=== PATIENT | female | born 1965 | race Two or more races ===

== ENCOUNTER 2024-12-28 14:41 | Inpatient (IN) | payer OTHER, SELFPAY ==
--- NOTE | ~2024-12-28 | CT_ITS ---
CLINICAL HISTORY: abd pain CT abdomen and pelvis with contrast Comparison: None Findings: No consolidation or effusion. The gallbladder is not visualized, presumed surgically absent. There is borderline prominence of the common hepatic duct. The solid organs are within normal limits. No hydronephrosis or hydroureter. No bowel obstruction, pneumoperitoneum, or pneumatosis. There is colonic diverticulosis without CT evidence for acute diverticulitis Uterine calcifications are visualized, suggesting calcified uterine fibroid disease. No bladder wall thickening Normal appendix. No acute fracture visualized. IMPRESSION: 1. No acute inflammatory process identified within the abdomen or pelvis. 2. Surgically absent gallbladder with borderline prominence of the common hepatic duct. Recommend clinical correlation any history of cholestatic labs to exclude subtle biliary obstruction/stasis. 3. Colonic diverticulosis. No CT evidence for acute diverticulitis 4. Calcified uterine fibroid disease. This document has been electronically signed by: Gordon Anderson MD on 12/28/2024 21:12:40
--- NOTE | ~2024-12-28 | MR_ITS ---
EXAMINATION: MRCP HISTORY: abd pain, elevated LFTs COMPARISON: Correlation is made with abdominal ultrasound and CT examinations dated 12/28/2024. TECHNIQUE: Axial gradient echo and coronal haste T2 with fat saturation images were obtained through the abdomen. 3D MRCP Reconstructed images and thick slab imaging of the biliary tree were obtained. FINDINGS: There is no significant loss of signal intensity within the liver on opposed phase imaging to suggest steatosis. There is no intrahepatic biliary ductal dilatation. The liver demonstrates normal signal intensity. The gallbladder is surgically absent. There is dilatation of the common bile duct measuring up to 11 mm. There are no intraluminal filling defects to suggest choledocholithiasis. The pancreas demonstrates normal signal intensity. The pancreatic duct is normal in caliber. The spleen, adrenals, and left kidney are unremarkable. There is a subcentimeter probable cyst at the upper pole of the right kidney. No retroperitoneal lymphadenopathy or ascites is identified in the upper abdomen. The visualized bones demonstrate normal signal intensity. MR/MR MRCP IMPRESSION: Status post cholecystectomy. Dilatation of the common bile duct is likely on the basis of prior cholecystectomy. There is no intrahepatic biliary ductal dilatation or evidence of choledocholithiasis. Electronically signed by: Thomas Brumfield MD 12/29/2024 01:04 PM RONDA
--- NOTE | ~2024-12-28 | US_ITS ---
CLINICAL HISTORY: RUQ US abdomen limited Comparison: CT/SR - CT ABDOMEN PELVIS W IV CON - 12/28/24 20:41 EST Findings: The gallbladder is surgically absent. The common duct measures up to 11.7 mm in diameter. Possible mild intrahepatic biliary dilation. The visualized portion of the liver appears normal in contour. No ascites. IMPRESSION: 1. Surgically absent gallbladder with mild dilation of the common duct up to 11.7 mm in diameter. Recommend clinical correlation with any history of cholestatic labs to evaluate for underlying biliary obstruction/stasis. May also consider MRCP examination for further evaluation as clinically directed. This document has been electronically signed by: Gordon Anderson MD on 12/28/2024 21:46:06
--- NOTE | 2024-12-28 14:45 | ED_ITS ---
HPI - General Adult General Chief complaint: Abdominal Pain Stated complaint: Upper Abd Pain Time Seen by Provider: 12/28/24 19:06 Source: patient Mode of arrival: ambulatory Limitations: no limitations History of Present Illness ED Provider: Bobby KEITH narrative: 59-year-old female with past medical history of acid reflux and cholecystectomy presenting for abdominal pain. Patient states that she has been experiencing approximately 1 week of intermittent epigastric pain. Pain is not associated with eating. She also endorses nausea and nonbloody nonbilious emesis however denies diarrhea, dysuria/hematuria. She also denies fevers, chills, chest pain, shortness of breath Related Data Allergies Allergy/AdvReac Type Severity Reaction Status Date / Time No Known Allergies Allergy Verified 12/28/24 14:49 Review of Systems 2 Review of Systems: Yes all other systems are reviewed and are negative [facility] Past Medical History Attestation statement: The following information was validated with the patient. [facility] Narrative: Acid reflux, cholecystectomy Social History Social History Advance Directives: No Advance Directives Information Provided: Yes Physical Exam ED Vital Signs: Vital Signs - 24 hr 12/28/24 14:46 12/28/24 19:31 Temperature 97.9 F 98.2 F Pulse Rate 67 100 Respiratory Rate 16 15 Blood Pressure 174/81 H 152/80 H Pulse Oximetry 98 98 Oxygen Delivery Method Room Air Room Air BMI result Body Mass Index 27.1 Well-appearing female in no acute distress A&O x4; normal speech and cognition Lungs clear to auscultation bilaterally Normal S1-S2 regular rate and rhythm Abdomen is soft, nondistended with epigastric and left lower quadrant tenderness to palpation Bilateral CVA tenderness to palpation Course Course Course Narrative: RME, this is a rapid medical exam performed by Josh Cespedes please refer to primary provider for complete H&P- 59 year old female presents for evaluation of upper abdominal pain for the last week. She is status post cholecystectomy. Plan for labs, will defer any advanced imaging at the time. Medical Decision Making Medical Decision Making [facility] Narrative: 59-year-old female presents for abdominal pain, nausea and vomiting -I am concerned for the following; gastritis, pancreatitis, SBO, nephrolithiasis, diverticulitis -labs and imaging studies ordered Lab and imaging interpretation -no signs of ischemia appreciated patient's ECG -CBC within normal limits, electrolytes within normal limits, elevated LFTs, normal lactic acid -I do not appreciate hydro or stones on pt's ct; radiology impression as follows Surgically absent gallbladder with borderline prominence of the common hepatic duct. Recommend clinical correlation any history of cholestatic labs to exclude subtle biliary obstruction/stasis. - I reviewed patient's ultrasound do not appreciate abnormal masses; radiologist's impression reads On reassessment patient is still uncomfortable; zofran and toradol ordered I spoke with Dr. Esposito who recommends MRCP Pt is agreeable to admission; overnight hospitalist accepted patient Lab Data 12/28/24 14:55 12/28/24 14:55 Labs: Lab Results 12/28/24 12/28/24 Range/Units 14:55 21:03 WBC 5.3 (4.8-10.8) X10*3/uL RBC 4.41 (4.20-5.50) X10*6/uL Hgb 13.5 (12.0-16.0) g/dl Hct 39.5 (37.0-47.0) % MCV 89.6 (80.0-98.0) fL MCH 30.6 (27.0-33.0) pg MCHC 34.2 (31.0-35.0) g/dl RDW 13.4 (11.0-16.0) % Plt Count 264 (160-400) X10*3/uL MPV 10.0 (9.4-12.3) fL Immature Gran % (Auto) 0.2 (0.0-0.4) % Neut % (Auto) 55.8 (45-73) % Lymph % (Auto) 35.7 (20-40) % [place] % (Auto) 6.6 (2-11) % Eos % (Auto) 0.9 (0-4) % Baso % (Auto) 0.8 (0-2) % Lymph # (Auto) 1.9 (1.2-4.9) X10*3/uL [place] # (Auto) 0.4 (0.1-1.2) X10*3/uL Eos # (Auto) 0.1 (0.0-0.4) X10*3/uL Baso # (Auto) 0.0 (0.0-0.2) X10*3/uL Abs Immat Gran (auto) 0.01 (0.00-0.03) X10*3/uL Absolute Neuts (auto) 3.0 (2.0-8.3) x10*3/uL Absolute Nucleated RBC 0.000 (0.0-0.012) X10*3/uL Nucleated RBC % (auto) 0.0 (0.0-0.2) /100WBC Sodium 143 (135-145) mmol/L Potassium 4.0 (3.3-5.1) mmol/L Chloride 109 H (96-108) mmol/L Carbon Dioxide 29 (22-29) mmol/L Anion Gap 9 L (12-20) BUN 12 (9-16) mg/dL Creatinine 0.79 (0.5-1.4) mg/dL Estim Creat Clear Calc 57.0 Estimated GFR > 60 Random Glucose 102 (60-115) mg/dL Lactic Acid 0.8 (0.5-2.0) mmol/L Calcium 8.8 (8.4-10.2) mg/dL Total Bilirubin 0.6 (0.0-1.0) mg/dL Direct Bilirubin 0.3 (0.0-0.5) mg/dL AST 218 H (5-31) U/L ALT 128 H (0-31) U/L Alkaline Phosphatase 136 H (39-117) U/L Troponin I High Sens 7.4 (<3.5-17.0) ng/L Total Protein 7.5 (6.5-8.0) g/dL Albumin 4.1 (3.5-5.0) g/dL Lipase 34 (8-78) U/L Urine Color Yellow Urine Appearance Cloudy Urine pH 8.5 (5.0-9.0) Ur Specific [place] >= 1.030 H (1.005-1.025) Urine Protein Negative (Neg-Trace) mg/dL Urine Glucose (UA) Negative (Negative) mg/dL Urine Ketones Negative (Negative) mg/dL Urine Blood Negative (Negative) Urine Nitrite Negative (Negative) Ur Leukocyte Esterase Negative (Negative) Urine RBC 0-2 (0-2) /HPF Urine WBC 0-5 (0-5) /HPF Ur Squamous Epith Cells 0-2 (0-2) /HPF Urine Bacteria None Seen (None Seen) Hyaline Casts 0-2 (0-2) /LPF Discharge Plan Discharge Clinical Impression: Elevated LFTs Abdominal pain Qualifiers: Abdominal location: epigastric Qualified Code(s): R10.13 - Epigastric pain Patient Disposition: Admitted As Inpatient Print Language: Romansh
[2024-12-28 14:46] VITALS: BP 174/81; PULSE 67; RESP 16; TEMP 36.6; O2SAT 98; BMI 27.1
--- NOTE | 2024-12-28 14:46 | ECG_ITS ---
Test Reason : PAIN Blood Pressure : */* mmHG Vent. Rate : 64 BPM Atrial Rate : 64 BPM P-R Int : 144 ms QRS Dur : 68 ms QT Int : 436 ms P-R-T Axes : 67 62 73 degrees QTcB Int : 449 ms Normal sinus rhythm Normal ECG No previous ECGs available Referred By: Randall Cespedes Electronically Signed By: Tip Santiago
[2024-12-28 15:01] LABS: MANUAL DIFF FLAG NO
[2024-12-28 15:04] LABS: Basophils Percent Auto 0.8 % (0-2); Eosinophils Absolute Auto 0.1 X10*3/uL (0.0-0.4); Eosinophils Percent Auto 0.9 % (0-4); Hematocrit 39.5 % (37.0-47.0); Hemoglobin 13.5 g/dl (12.0-16.0); Imm Gran Abs Auto 0.01 X10*3/uL (0.00-0.03); Imm Gran Pct Auto 0.2 % (0.0-0.4); Lymphocytes Absolute Auto 1.9 X10*3/uL (1.2-4.9); Lymphocytes Percent Auto 35.7 % (20-40); Mean Corpuscular HGB Conc 34.2 g/dl (31.0-35.0); Mean Corpuscular Hemoglobin 30.6 pg (27.0-33.0); Mean Corpuscular Volume 89.6 fL (80.0-98.0); Monocytes Absolute Auto 0.4 X10*3/uL (0.1-1.2); Monocytes Percent Auto 6.6 % (2-11); Neutrophils Percent Auto 55.8 % (45-73); Platelet Count 264 X10*3/uL (160-400); Red Blood Count 4.41 X10*6/uL (4.20-5.50); Red Cell Distribution Width 13.4 % (11.0-16.0); White Blood Count 5.3 X10*3/uL (4.8-10.8)
[2024-12-28 15:16] LABS: Lactic Acid 0.8 mmol/L (0.5-2.0)
[2024-12-28 15:19] LABS: Alanine Aminotransferase 128 U/L (0-31); Albumin Level 4.1 g/dL (3.5-5.0); Alkaline Phosphatase 136 U/L (39-117); Anion Gap 9 (12-20); Aspartate Amino Transferase 218 U/L (5-31); Bilirubin Total 0.6 mg/dL (0.0-1.0); Blood Urea Nitrogen 12 mg/dL (9-16); Calcium 8.8 mg/dL (8.4-10.2); Carbon Dioxide 29 mmol/L (22-29); Chloride 109 mmol/L (96-108); Estimated Glomerular Filt Rate > 60; Glucose Random 102 mg/dL (60-115); Lipase 34 U/L (8-78); Sodium 143 mmol/L (135-145); Total Protein 7.5 g/dL (6.5-8.0)
[2024-12-28 19:23] LABS: Bilirubin Direct 0.3 mg/dL (0.0-0.5)
[2024-12-28 19:31] VITALS: BP 152/80; PULSE 100; RESP 15; TEMP 36.8; O2SAT 98
[2024-12-28 19:59] LABS: Troponin-I High Sensitivity 7.4 ng/L (<3.5-17.0)
--- OUTSIDE RECORDS SUMMARY | 2024-12-28 20:08 | XMS_ITS ---
Author Organization [facility] Address [address] [facility] [place] [address] Care Team Providers Care Chiropractic Practice Manager Name Role Phone Chase Parkinson Primary Care Provider Kari Acosta [phone] Encounters Encounter Location Date Provider Diagnosis [address] [address] 08/17/2024 Kari Garcia Plan Of Treatment No Information Progress Notes * Dave LUJANaDOB:1965 (59 yo F)Acc No.[id number]:08/17/2024 Progress Note Patient:?TAI Fani Provider:Annemarie Garcia DPM :1965???Age:58 Y???Sex:Female D ate:08/17/2024 Address:[address] [place] Pcp:Chase Parkinson Subjective: * Chief Complaints: * ??? * Medical History:? Objective: * Vitals:? Assessment: Plan: * Treatment: * Images: * The named appointment provid er may or may not be the originator of this progress note, and it is not deemed complete until electronically signed by the appointment provider. Sign off status: Pending * Provider:Annemarie Garcia DPM Date:?2023 Generated for Mauri ahuja/Sally/eTransmitting on:?12/28/2024 08:08 PM EST
--- OUTSIDE RECORDS SUMMARY | 2024-12-28 20:08 | XMS_ITS ---
Author Organization [facility] Address [address] [place] [address] Care Team Providers Care Multiple Pressure Riveter Operator Name Role Phone Chase Parkinson Primary Care Provider Unavailabl e Black, Kari Unavailable [phone] REASON FOR VISIT numbness Encounters Encounter Location Date Provider Diagnosis [facility] [address] [place] [address] 06/14/2024 Karicolton Garcia Plan Of Treatment No Information Progress Notes * Dave LUJANaDOB:1965 (58 yo F)Acc No.[id number]:06/14/2024 Patient:?Fani Lujan :1965???Age:58 Y???Sex:Female Address:[address] [place], [address] * true * Date:? Generated for Crowi seymour/Sally/eTransmitting on:?12/28/2024 08:07 PM EST
--- OUTSIDE RECORDS SUMMARY | 2024-12-28 20:08 | XMS_ITS ---
Author Organization [facility] Address [address] [place] [address] Care Team Providers Care Computer Assembler Name Role Phone Chase Parkinson Primary Care Provider Unavailabl e Black, Kari Unavailable [phone] REASON FOR VISIT Cancel Encounters Encounter Location Date Provider Diagnosis [facility] [address] [place] [address] 08/16/2024 Kari Black Plan Of Treatment No Information Progress Notes * Scottie LUJANB:1965 (58 yo F)Acc No.[id number]:08/16/2024 Patient:?Fani Lujan :1965???Age:58 Y???Sex:Female Address:[address] [place], [address] * true * Date:? Generated for Crowi seymour/Sally/eTransmitting on:?12/28/2024 08:07 PM EST
--- OUTSIDE RECORDS SUMMARY | 2024-12-28 20:08 | XMS_ITS | Continuity of Care Document ---
Author Organization [facility] Address [address] [place] [address]- Care Team Providers Care Car Pusher Name Role Phone Iggy MOSHER, Chase Primary Care Physician Encounter [id number] Date(s): 12/01/24 - 12/01/24 [facility] [address] [place] [id number] Encounter Type: Results Only Allergies, Adverse Reactions, Alerts No Known Allergies Immunizations Given and Recorded Vaccine Date Status Refusal Reason influenza virus vaccine, inactivated 08/02/23 Dickson rded influenza virus vaccine, inactivated 08/30/21 Dickson rded influenza virus vaccine, inactivated 07/12/20 Dickson rded influenza virus vaccine, inactivated 09/21/19 Dickson rded influenza virus vaccine, inactivated 09/27/18 Dickson rded influenza virus vaccine, inactivated 09/13/16 Dickson rded [id number] 12y+ bivalent booster vax 10/01/22 Recorded SARS-CoV-2 (COVID-19) mRNA BNT-162b2 vac 11/22/21 Recorded SARS-CoV-2 (COVID-19) mRNA BNT-162b2 vac 04/04/21 Recorded SARS-CoV-2 (COVID-19) mRNA BNT-162b2 vac 03/14/21 Recorded diphtheria/tetanus/pertussis, acel(DTaP) 1 07/25/19 Recorded 1Result Comment: Unit: Unknown Medications Boniva 150 mg oral tablet 1 tablet = 150 mg, By Mouth, Every 30 days, # 10 mL, 0 Refills, Maintenance, 07/12/24 11:53:00 AM EDT, Tablet, Partial fill upon patient request if the prescription is for a schedule II opioid drug. Start Date: 07/12/24 Status: Ordered Quantity: 10.0 Unit: mL Repeat number: 1 Butalbital Compound By Mouth, 0 Refills, Maintenance, 10/09/23 3:49:00 PM EST Start Date: 10/09/23 Status: Ordered Repeat number: 1 calcium (as citrate)-vitamin D 315 mg-250 intl units oral tablet 2 tablet, By Mouth, 2 times a day, # 120 tablet, 11 Refills, Maintenance, 05/23/24 3:09:00 PM EDT, Tablet, [facility]/pharmacy #[id number], Partial fill upon patient request if the prescription is for a schedule II opioid drug., 2 tablet By Mouth 2 times a day, 152, cm, 05/23/24 14:55:00 EDT, Height, 58.5, kg, 01/05/24 11:45:00 EST, Dry Weight Start Date: 05/23/24 Status: Ordered Quantity: 120.0 Unit: tablet Repeat number: 12 Omeprazole = 20 mg, By Mouth, Daily, 0 Refills, Maintenance, 10/07/19 4:10:45 PM EST Start Date: 10/07/19 Status: Ordered Repeat number: 1 Tylenol Extra Strength 500 mg oral tablet 1 tablet = 500 mg, By Mouth, 4 times a day, PRN Pain , Moderate, Maintenance, 11/23/19 3:36:00 PM EST Start Date: 11/23/19 Status: Ordered Repeat number: 1 Vitamin C Tablet = 1,000 mg, By Mouth, Daily, 0 Refills, Maintenance, 12/21/19 6:08:00 AM EST, Tablet Start Date: 12/21/19 Status: Ordered Repeat number: 1 Vitamin D3 1000 intl units oral tablet 1 tablet = 25 mcg, By Mouth, Daily, # 90 tablet, 1 Refills, Maintenance, 09/10/24 9:28:00 AM EST, [id number], Partial fill upon patient request if the prescription is for a schedule II opioid drug., 152, cm, 07/18/24 15:34:00 EDT, Height, 58.5, kg, 01/05/24 11:45:00 EST, Dry Weight Start Date: 09/10/24 Stop Date: 03/09/25 Status: Ordered Quantity: 90.0 Unit: tablet Repeat number: 2 Problem List Condition Confirmation Course Effective Dates Status Health Status Informant Acquired deformity of ankle AND/OR foot Confirmed Active Acquired hammer toe of left foot Confirmed Active Acquired hammer toe of right foot Confirmed Active Anti-nuclear factor detected Confirmed Active Anxiety disorder Confirmed Active Benign neoplasm of skin of neck Confirmed Active Calcific tendinitis of shoulder Confirmed Active Cholelithiasis Confirmed 2006 Active Cystitis Confirmed Active of relative Confirmed Active Dyslipidemia Confirmed Active Family history of diabetes mellitus Confirmed Active Fibromyalgia Confirmed Active Gastroesophageal reflux disease without esophagitis Confirmed Active Helicobacter pylori Confirmed Active Irritable bowel syndrome Confirmed Active Liver enzymes level above reference range Confirmed Active Paresthesia of foot Confirmed Active Paresthesia of arm Confirmed Active Pigmented skin lesion Confirmed Active 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 Primary osteoporosis Confirmed Active Psoriasis Confirmed Active Pure hypercholesterolemia Confirmed Active Shoulder pain Confirmed Active Skin lesion Confirmed Active Stress Confirmed Active Temporomandibular joint disorder Confirmed Active Trochanteric bursitis of left hip Confirmed Active Social History Social History Type Response Smoking Status Never (less than 100 in lifetime) entered on: 10/07/19 Sex Sex Representation Female (finding) Patient Care team information Care Team Personnel Name: Chase Parkinson MD Position: [facility] Physician - Primary Care Member Role: PCP Address: [address] [place] [address] [place] [address] Telecom: Name: Arielle Schroeder RN Position: [facility] Onco RN Member Role: Primary Care Nurse Care Team Related Persons Name: YASHIRA LUJAN Insurance Providers Guarantor name: MARISABEL LUJAN Health Plan Information #: 1 Payer: [facility] FF NON BHP HMO Member Number: NA Policy Number: NA Group Number: NA
--- OUTSIDE RECORDS SUMMARY | 2024-12-28 20:08 | XMS_ITS | Patient Health Record ---
Author Organization [facility] Address [address] [place] [address] Care Team Providers Care Shot Lighter Name Role Phone Chase Parkinson Primary Care Provider Unavailmumtaz e Kari Garcia Unavailable [phone] Allergies No Known Allergies Reason For Referral No Information Medications Medication SIG (Take, Route, Frequency, Duration) Notes Start Date End Date Status Triamcinolone Acetonide 0.1 % 1 application Externally Two times a Week Active Betamethasone Dipropionate Aug 0.05 % 1 application Externally Once a day Active Vitamin D Active Calcium Active Boniva Active Feldene 20 MG 1 capsule with food Orally Once a day for 30 day(s) 11/24/2023 Not-Taking Ibuprofen Active Omeprazole Active Butalbital-Acetaminophen Active Social History Tobacco Use: Social History Observation Description Date Details (start date - stop date) Never Smoker NA - NA Tobacco Use/Smoking Question Answer Notes Are you a: nonsmoker Additional Findings: Tobacco Non-User Aggressive non-smoker Alcohol Screen Question Answer Notes Did you have a drink containing alcohol in the p ast year? No Points 0 Interpretation Negative Tobacco use other than smoking: Question Answer Notes Are you an other tobacco user? No Problems Problem Type SNOMED Code ICD Code Onset Dates Problem Status W/U Status Risk Notes Problem Acquired hallux valgus (46900226) Hallux valgus (acquired), left foot (M20.12) Active confirmed Problem Acquired hammer toe of right foot (404212975442 9105) Other hammer toe(s) (acquired), right foot (M20.41) Active confirmed Problem Acquired hammer toe of left foot (640333318725 9103) Other hammer toe(s) (acquired), left foot (M20.42) Active confirmed Problem [id number] Pronation deformity of left foot (M21.6X2) Active confirmed Problem [id number] Pronation deformity of right foot (M21.6X1) Active confirmed Problem Acquired deformity of right foot (714165852573 15953) PlantarFlexion of metatarsal of right foot (M21.6X1) Active confirmed Problem Acquired deformity of left foot (073133328042 22201) PlantarFlexion of metatarsal of left foot (M21.6X2) Active confirmed Vital Signs Height 5ft in 02/24/2024 Weight 127 lbs 02/24/2024 BMI 24.8 kg/m2 02/24/2024 Encounters Encounter Location Date Provider Diagnosis [address] [address] 12/29/2023 Kari Black Pain in left foot M79.672 ; Metatarsalgia of left foot M77.42 ; Pain in left ankle and joints of left foot M25.572 ; Bursitis of intermetatarsal bursa of left foot M77.52 ; Pain in right foot M79.671 ; Pain in right ankle and joints of right foot M25.571 ; Bursitis of intermetatarsal bursa of right foot M77.51 and Metatarsalgia, right foot M77.[address] [address] 02/24/2024 Kari Black Pain in left foot M79.672 ; Metatarsalgia of left foot M77.42 ; Pain in left ankle and joints of left foot M25.572 ; Bursitis of intermetatarsal bursa of left foot M77.52 ; Pain in right foot M79.671 ; Pain in right ankle and joints of right foot M25.571 ; Bursitis of intermetatarsal bursa of right foot M77.51 and Metatarsalgia, right foot M77.[address] [facility] [address] 02/11/2024 Kari Black [facility] [address] [address] 05/20/2024 Karicolton Garcia [facility] [place] [address] [place] [address] 06/14/2024 Kari Jose [facility] [address] [place] [address] 08/16/2024 Kari Garcia [facility] Encounter Date Diagnosis (ICD Code) Assessment Notes Treatment Notes Treatment Clinical Notes Section Notes 12/29/2023 Pain in left foot (ICD-10 - M79.672) 12/29/2023 Metatarsalgia of left foot (ICD-10 - M77.42) 02/24/2024 Pain in left foot (ICD-10 - M79.672) 02/24/2024 Metatarsalgia of left foot (ICD-10 - M77.42) 02/24/2024 Pain in left ankle and joints of left foot (ICD-10 - M25.572) 12/29/2023 Pain in left ankle and joints of left foot (ICD-10 - M25.572) 12/29/2023 Bursitis of intermetatarsal bursa of left foot (ICD-10 - M77.52) 02/24/2024 Bursitis of intermetatarsal bursa of left foot (ICD-10 - M77.52) 02/24/2024 Pain in right foot (ICD-10 - M79.671) 12/29/2023 Pain in right foot (ICD-10 - M79.671) 12/29/2023 Pain in right ankle and joints of right foot (ICD-10 - M25.571) 02/24/2024 Pain in right ankle and joints of right foot (ICD-10 - M25.571) 12/29/2023 Bursitis of intermetatarsal bursa of right foot (ICD-10 - M77.51) 02/24/2024 Bursitis of intermetatarsal bursa of right foot (ICD-10 - M77.51) 12/29/2023 Metatarsalgia, right foot (ICD-10 - M77.41) 02/24/2024 Metatarsalgia, right foot (ICD-10 - M77.41) Plan Of Treatment No Information Insurance Providers Payer Name Payer Address Payer Phone Subscriber Number Group Number Insured Name Patient Relationship to Insured Coverage Start Date Coverage End Date [facility] [address] [place] [address] [phone] [id number] Fani Salazar Self - patient is the insured Medical (General) History Medical History History ICD Code Back,Hip,and Knee pain Gall bladder problems Headaches/Migraines Psoriasis Reflux ( GERD) Sciatica Chicken pox Surgical History Surgery Date(Month/Year) gall bladder removal 2005 ovarian cyst removal 2009
[2024-12-28 21:13] LABS: Appearance Urine Cloudy; Color Urine Yellow; Glucose Urine UA Negative (Negative); Leukocyte Esterase Urine Negative (Negative); Nitrite Urine Negative (Negative); PH 8.5 (5.0-9.0); Specific Gravity - Urine >= 1.030 (1.005-1.025); Urine Blood Negative (Negative); Urine Ketones Negative (Negative); Urine Protein Negative (Neg-Trace)
[2024-12-28 21:18] LABS: Bacteria Urine None Seen (None Seen); Hyaline Casts Urine 0-2 /LPF (0-2); RBC Urine 0-2 /HPF (0-2); Squamous Epithelial Cell Urine 0-2 /HPF (0-2); WBC Urine 0-5 /HPF (0-5)
[2024-12-28 22:32] LABS: HCG Quantitative < 2 mIU/mL
--- NOTE | 2024-12-28 22:38 | P.HPHOSP_ITS ---
History of Present Illness Date of Service: 12/28/24 Chief Complaint: Abdominal pain This is a 59-year-old female with pertinent history of gastroesophageal reflux disease who presents to the emergency department for evaluation of abdominal pain. Patient states her symptoms started 1 week prior to presentation. She has been having epigastric discomfort, nonradiating which was initially intermittent progressed to being constant on the day of presentation. Also has been having nausea and nonbloody emesis. The pain increased with food on the day of presentation. States she does have a problem of gastroesophageal reflux and previously has had endoscopy by GI. Takes omeprazole every day. No fever, chills, diarrhea. Denies chest pain, palpitations, shortness of breath, changes in urinary habits. In the emergency department, liver enzymes and alk-phos found to be elevated. Imaging with dilated common duct. Gastroenterology was consulted who requested admission Review of Systems 2 Constitutional: Constitutional: Reports fatigue, Reports malaise and Reports poor appetite Cardiovascular: Cardiovascular: Reports no additional cardiovascular complaints Respiratory: Respiratory: Reports no additional respiratory complaints Gastrointestinal: Gastrointestinal: Reports abdominal pain, Reports nausea and Reports vomiting Genitourinary: Genitourinary: Reports no additional female genitourinary complaints Endocrine: Endocrine: Reports fatigue PMFSH Medical History Gastroesophageal reflux disease Pertinent family history: No family history of early CAD Surgical History History of cholecystectomy Social History Advance Directives: No Advance Directives Information Provided: Yes Meds Allergies Allergy/AdvReac Type Severity Reaction Status Date / Time No Known Allergies Allergy Verified 12/28/24 14:49 Physical Exam 2 Vital Signs and Narrative: Vital Signs: Last Vital Signs Temp 98.2 F 12/28/24 19:31 Pulse 100 12/28/24 19:31 Resp 15 12/28/24 19:31 BP 152/80 H 12/28/24 19:31 Pulse Ox 98 12/28/24 19:31 O2 Del Method Room Air 12/28/24 19:31 BMI result Body Mass Index 27.1 Middle-aged female lying in bed in no distress Neck supple, no JVD Regular rate and rhythm, S1-S2 heard Regular breath sounds bilaterally, no wheezing or crackles appreciated Abdomen with a epigastric tenderness, no rigidity Patient is awake, alert and oriented to self, place, time and person ; no focal motor deficit Psych: Normal mood No pedal edema Results Labs 12/28/24 14:55 12/28/24 14:55 Labs: Laboratory Results - last 24 hr 12/28/24 12/28/24 14:55 21:03 MCV 89.6 MCH 30.6 MCHC 34.2 RDW 13.4 Plt Count 264 MPV 10.0 Immature Gran % (Auto) 0.2 Neut % (Auto) 55.8 Lymph % (Auto) 35.7 [place] % (Auto) 6.6 Eos % (Auto) 0.9 Baso % (Auto) 0.8 Lymph # (Auto) 1.9 [place] # (Auto) 0.4 Eos # (Auto) 0.1 Baso # (Auto) 0.0 Abs Immat Gran (auto) 0.01 Absolute Neuts (auto) 3.0 Absolute Nucleated RBC 0.000 Nucleated RBC % (auto) 0.0 Anion Gap 9 L Estim Creat Clear Calc 57.0 Estimated GFR > 60 Random Glucose 102 Lactic Acid 0.8 Calcium 8.8 Total Bilirubin 0.6 Direct Bilirubin 0.3 AST 218 H ALT 128 H Alkaline Phosphatase 136 H Total Protein 7.5 Albumin 4.1 Lipase 34 Beta HCG, Quant < 2 Urine Color Yellow Urine Appearance Cloudy Urine pH 8.5 Ur Specific [place] >= 1.030 H Urine Protein Negative Urine Glucose (UA) Negative Urine Ketones Negative Urine Blood Negative Urine Nitrite Negative Ur Leukocyte Esterase Negative Urine RBC 0-2 Urine WBC 0-5 Ur Squamous Epith Cells 0-2 Urine Bacteria None Seen Hyaline Casts 0-2 Assessment and Plan (1) Elevated LFTs: Status: Acute (2) Abdominal pain: Qualifiers: Abdominal location: epigastric Qualified Code(s): R10.13 - Epigastric pain Status: Acute Plan This is a 59-year-old female with pertinent history of gastroesophageal reflux disease who presents to the emergency department for evaluation of abdominal pain. #. Abdominal pain with elevated ALT/AST/alk-phos and dilatation of common duct on imaging. Will admit patient and obtain MRCP in a.m.. Consulted Gastroenterology, appreciate assistance. Ordered IV Protonix Med rec pending DVT prophylaxis: SCDs Full code Quality Stroke Does the patient have a stroke diagnosis?: No VTE Prior VTE?: No VTE Risk Level:: Medical - moderate - high VTE Device Contraindication: N/A - Device Ordered VTE Drug Contraindication: Treatment Not Indicated
[2024-12-28] MEDS: Ketorolac Tromethamine 15 MG/ML VIAL IVPUSH (23:16)
[2024-12-28] MEDS: ondansetron HCL 4 MG/2 ML VIAL IVPUSH (23:17)
[2024-12-28 23:52] VITALS: BP 106/59; PULSE 64; RESP 16; TEMP 36.6; O2SAT 96
[2024-12-29] MEDS: Pantoprazole Sodium 40 MG/10 ML VIAL IVPUSH (00:11)
[2024-12-29 03:38] VITALS: BP 110/60; PULSE 64; RESP 16; TEMP 36.9; O2SAT 98
[2024-12-29 04:55] LABS: MANUAL DIFF FLAG NO
[2024-12-29 05:00] LABS: Basophils Percent Auto 0.6 % (0-2); Eosinophils Absolute Auto 0.1 X10*3/uL (0.0-0.4); Eosinophils Percent Auto 0.8 % (0-4); Hematocrit 39.1 % (37.0-47.0); Hemoglobin 12.9 g/dl (12.0-16.0); Imm Gran Abs Auto 0.01 X10*3/uL (0.00-0.03); Imm Gran Pct Auto 0.2 % (0.0-0.4); Lymphocytes Absolute Auto 2.2 X10*3/uL (1.2-4.9); Lymphocytes Percent Auto 34.4 % (20-40); Mean Corpuscular Hemoglobin 29.7 pg (27.0-33.0); Mean Corpuscular Volume 90.1 fL (80.0-98.0); Mean Platelet Volume 10.9 fL (9.4-12.3); Monocytes Absolute Auto 0.4 X10*3/uL (0.1-1.2); Monocytes Percent Auto 6.8 % (2-11); Neutrophils Absolute Auto 3.7 x10*3/uL (2.0-8.3); Neutrophils Percent Auto 57.2 % (45-73); Platelet Count 262 X10*3/uL (160-400); Red Blood Count 4.34 X10*6/uL (4.20-5.50); Red Cell Distribution Width 13.5 % (11.0-16.0); White Blood Count 6.5 X10*3/uL (4.8-10.8)
[2024-12-29 05:14] LABS: Alanine Aminotransferase 616 U/L (0-31); Albumin Level 3.9 g/dL (3.5-5.0); Alkaline Phosphatase 181 U/L (39-117); Anion Gap 12 (12-20); Aspartate Amino Transferase 588 U/L (5-31); Bilirubin Total 0.9 mg/dL (0.0-1.0); Blood Urea Nitrogen 12 mg/dL (9-16); Calcium 8.7 mg/dL (8.4-10.2); Carbon Dioxide 25 mmol/L (22-29); Chloride 109 mmol/L (96-108); Creatinine Clr Calc Pharmacy 65.2; Estimated Glomerular Filt Rate > 60; Glucose Random 96 mg/dL (60-115); Potassium 3.9 mmol/L (3.3-5.1); Sodium 142 mmol/L (135-145); Total Protein 7.2 g/dL (6.5-8.0)
[2024-12-29 06:15] VITALS: BP 108/62; PULSE 63; RESP 16; TEMP 36.8; O2SAT 96
--- NOTE | 2024-12-29 07:41 | PC.NURSE ---
MRI form filled out/faxed/placed in pt's chart. information obtained w/ pt.
[2024-12-29] MEDS: Omeprazole 40 MG CAPSULE.DR PO (09:08)
--- NOTE | 2024-12-29 09:13 | PHA.MEDREC ---
Addendum entered by Isidro Roa RPh 12/29/24 09:44: MED REC CHECKED BY [facility] Original Note: Pharmacy Consult ? Medication Reconciliation Pharmacy has completed the medication reconciliation. Spoke with patient and she stated she takes OTC medications and confirmed she takes Omeprazole 20mg tabs once in the morning, Calcium Citrate 500mg tabs 1 twice a day and Vitamin D3 25mcg tabs once daily. She confirmed she took the Omeprazole 20mg tab yesterday and the Calcium Citrate 500mg and Vitamin D3 tabs were taken 2 days ago.
[2024-12-29 09:41] LABS: INTERNATIONAL NORM RATIO 0.9 (0.9-1.1); Prothrombin Time 10.2 SEC (10.9-12.4)
[2024-12-29 09:45] LABS: Alanine Aminotransferase 580 U/L (0-31); Albumin Level 4.1 g/dL (3.5-5.0); Alkaline Phosphatase 196 U/L (39-117); Aspartate Amino Transferase 430 U/L (5-31); Bilirubin Direct 0.4 mg/dL (0.0-0.5); Bilirubin Total 1.1 mg/dL (0.0-1.0); Total Protein 7.5 g/dL (6.5-8.0)
[2024-12-29 10:07] LABS: HBS Num1 0.64 mIU/mL (0-7.99); HBc Num1 0.09 S/CO (0.00-0.79); HBsAGNum1 0.31 S/CO (0.00-0.99); Hepatitis B Core Antibody Nonreactive (Nonreactive); Hepatitis B Surface Antigen Negative (Negative); ~HepC Num1 0.15 S/CO (0.00-0.79); ~Hepatitis A Antibody IgM Nonreactive (Nonreactive); ~Hepatitis B Surface Antibody NONREACTIVE (Nonreactive); ~Hepatitis C Antibody Nonreactive (Nonreactive)
--- NOTE | 2024-12-29 12:09 | MHC.CM.PN ---
PT REPORTS SHE LIVES WITH HER AND IS INDEPENDENT WITH CARE SHE HAS NO DME AND NO SERVICES PT DID NOT WANT TO SIGN A HCP, BUT DID ACCEPT INFO AND DOCUMENT PCP: ESAU JUAREZ DCP: HOME NO SERVICES VIA PRIVATE TRANSPORT
--- NOTE | 2024-12-29 12:36 | PM.EVENT ---
Event Note Date of Service: 12/29/24 Event Note: Seen/examined 59-year-old female with pertinent history of gastroesophageal, history CCY, reflux disease who presents to the emergency department for evaluation of abdominal pain. Abdominal pain with elevated ALT/AST/alk-phos and dilatation of common duct on imaging. MRCP pending. DVT prophylaxis: SCDs Time Spent With Patient Time: Total time managing care of this patient today ____ minutes.
[2024-12-29 12:58] VITALS: BP 115/65; PULSE 64; RESP 16; TEMP 36.6; O2SAT 100
[2024-12-29 16:16] VITALS: BP 120/66; PULSE 64; RESP 14; TEMP 36.6; O2SAT 97
--- NOTE | 2024-12-29 16:22 | PM.EVENT ---
Event Note Date of Service: 12/29/24 Event Note: GI Consult-Full note dictated-History from patient, , and EMR. Imp: Suspect she has passed a CBD stone given her presenting abdominal pain, rapid resolution, improving LFT's, and her MRCP being negative for any obvious choledocholithiasis. She appears very comfortable and has a benign abdomen presently. Rec: Observe, advance diet, and recheck labs in the AM. If all is stable in the AM she could be discharged and have follow up LFT's next week with her PCP. Please let me know if anything changes with recurring pain, worsening LFt's, etc, in which case we could reevaluate for possible ERCP before discharge. Full consent has been obtained for that, if needed, including risks of bleeding, perforation, cholangitis, and pancreatitis. I did review with the patient and her the chance that small stones in the CBD may be missed on MRI and therefore she could develop recurrent symptoms or issues such as pancreatitis or cholangitis, in which case she would need to to come to the ER.They understood and were comfortable with this plan. Thanks Time Spent With Patient Time: Total time managing care of this patient today ____ minutes.
[2024-12-29 18:59] VITALS: BMI 28.9
[2024-12-29 19:57] VITALS: BP 111/64; PULSE 67; RESP 18; TEMP 36.3; O2SAT 97
[2024-12-29] MEDS: 0.9 % Sodium Chloride Flush 3 ML SYRINGE IVFLUSH (22:24)
[2024-12-29] MEDS: Calcium Oyster Shell Elemental 500 MG TABLET PO (22:24)
--- NOTE | 2024-12-30 02:44 | CONS_ITS ---
DATE OF SERVICE: 12/29/2024 REASON FOR CONSULTATION: Abdominal pain, elevated LFTs, and abnormal imaging of bile ducts. HISTORY OF PRESENT ILLNESS: This has been obtained from the patient, her , and medical record. The patient is a 59-year-old healthy female, who was in her usual state of health up until about 1 week ago. At that time she began having some fairly low-grade episodes of upper abdominal pain in the epigastric area. However as the week progressed, particularly yesterday, the pain became much more severe associated with some nausea and vomiting. The pain would occasionally be related to eating, but not always. At times, she was able to eat comfortably. She never noticed any signs of jaundice, fevers, nor chills. She did not see any hematemesis nor coffee-ground emesis. During this time, her bowel movements remained regular and without any melena nor hematochezia. She is status post cholecystectomy about 15 years ago during which time, she had similar pain to the pain that brought her to the ER last evening. At the time of her gallbladder surgery, she does not recall having had an ERCP and did not have any jaundice. After her cholecystectomy, she describes that she did not have any particular stomach trouble other than occasional episodes of discomfort, which were attributed to reflux. She has had 2 upper endoscopies and a colonoscopy with Dr. Hoover at [facility] over the last 5 to 7 years. She reports that those studies were unremarkable. She has been on omeprazole chronically since then. She denies any significant heartburn, anorexia, nor dysphagia. She has not had any particular weight loss. When she came to the ER last evening she was quite uncomfortable, but reports that after receiving some pain medication she has been feeling much better and has not had any recurrent pain. She has not eaten yet, but is hungry. She denies any history of liver disease in herself nor family members. She has not been using any medication other than omeprazole and denies using any [id number] medications such as Tylenol or NSAIDs. She denies any known family history of liver disease. She has been afebrile in the emergency room and her vital signs have otherwise been stable. MEDICATIONS: At home, omeprazole. Medications here in the hospital include Tums, vitamin D, Toradol, melatonin, omeprazole, Zofran, and 1 dose of Protonix. PAST MEDICAL HISTORY: Surgery for benign breast biopsies, cholecystectomy as above, ovarian cyst, and history of reflux. She denies a history of heart disease, diabetes, stroke, lung disease, or kidney disease. 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 She is . She does not smoke and drinks only occasional wine. FAMILY HISTORY: Noncontributory. REVIEW OF SYSTEMS: CONSTITUTIONAL: Prior to the past week, she was feeling well with good energy and good appetite. SKIN: No rash. No pruritus. CARDIAC: No chest pain. PULMONARY: No coughing or hemoptysis. GI: As above. URINARY: No dysuria. No hematuria. NEUROLOGIC: No headache or seizures. PHYSICAL EXAMINATION: GENERAL: The patient is a pleasant, alert, comfortable-appearing female. SKIN: Warm and dry. Anicteric sclerae. Moist mucous membranes. NECK: Supple. CHEST: Clear. CARDIAC: Normal S1, S2. ABDOMEN: Soft, nondistended. Normal bowel sounds and nontender. There is no mass. EXTREMITIES: Without edema. LABORATORY DATA: White blood cell count was 5.3 on admission and 6.5 this morning, hemoglobin 13.5, platelets 264,000. PT 10.2 with INR 0.9. Her labs on admission showed AST 218, ALT 128, and alkaline phosphatase 136 with a normal total bilirubin. Followup labs showed AST up to 588, ALT 616, and alkaline phosphatase 181. Followup labs this morning showed improvement with AST of 430, ALT of 580, but alkaline phosphatase of 196, and total bilirubin of 1.1 with a direct bilirubin 0.4. Albumin was 4.1. Lipase was 34. Chemistries are normal. Hepatitis A, B, and C studies were negative. Her CT scan and ultrasound did not show any particular biliary disease other than some dilatation of the common duct. There was no sign of any pancreatitis nor other significant abnormality. Her common duct on the ultrasound was up to 11.7 mm, but again without any sign of choledocholithiasis. She did have a followup MRCP, which the radiologist describes as being negative for any sign of choledocholithiasis. There was some dilatation of the common bile duct, but no intrahepatic ductal dilatation. The pancreas appeared normal. IMPRESSION: Given the patient's presentation with abdominal pain, a dilated bile duct, and elevated liver function tests, this may certainly speak for choledocholithiasis. However, at the present time given the rapid resolution of her pain, some normalization of the liver enzymes, and otherwise negative MRCP, I would think she may very well have passed a common duct stone. At this point, she appears well. I do not think she has any primary liver disease contributing to the elevated liver enzymes. The other possibilities in regard to the dilated extrahepatic bile duct is that it is simply in relation to her previous cholecystectomy. At this point, given the resolution of her symptoms, improving LFTs, and negative MRCP for any obvious common duct stone, I would be inclined to hold off on ERCP at the present time. However, certainly if anything changes with recurrent pain and/or increasing liver function tests, we may then want to reassess things and proceed with an ERCP at that point. I did review everything with the patient and her in detail. I did advise him that sometimes there can be small stones that are simply not seen on the MRI and may cause problems in the near term or down the road. However, at this point since she is feeling well and everything points to her having passed a stone, I do not think it would be worthwhile to put her through an ERCP at this time. However, I did advise her and her to certainly call me or to come back to the ER if she has recurrent symptoms and we could then always reassess things if need be. At this point, I would recommend we give her a trial of some food and then if stable tomorrow, she could be discharged as long as she is feeling well and her liver function tests are improving. I did advise her to be sure to follow up with her primary care doctor to recheck a liver profile to be sure things are continuing to improve. I did advise her that if her symptoms recur, she should come back to the ER for re-evaluation as well. She and her were comfortable with this plan. Thank you for the consultation. MD PASTOR Rosario/APARNA / [phone] MTDCecile
[2024-12-30 03:47] VITALS: BP 114/62; PULSE 71; RESP 18; TEMP 36.4; O2SAT 98
[2024-12-30] MEDS: Acetaminophen 325 MG TABLET 650 MG PO (03:52)
[2024-12-30] MEDS: Omeprazole 40 MG CAPSULE.DR PO (05:20)
[2024-12-30 05:55] LABS: Alanine Aminotransferase 373 U/L (0-31); Albumin Level 3.6 g/dL (3.5-5.0); Alkaline Phosphatase 163 U/L (39-117); Aspartate Amino Transferase 178 U/L (5-31); Bilirubin Direct 0.3 mg/dL (0.0-0.5); Bilirubin Total 1.2 mg/dL (0.0-1.0); Total Protein 6.7 g/dL (6.5-8.0)
[2024-12-30] MEDS: 0.9 % Sodium Chloride Flush 3 ML SYRINGE IVFLUSH (07:13)
[2024-12-30] MEDS: Cholecalciferol (Vitamin D3) 25 MCG TABLET PO (07:14)
[2024-12-30] MEDS: Calcium Oyster Shell Elemental 500 MG TABLET PO (07:14)
[2024-12-30 07:18] VITALS: BP 99/53; PULSE 64; RESP 16; TEMP 36.3; O2SAT 94
--- NOTE | 2024-12-30 07:34 | P.DS_ITS ---
DS: Providers Provider Date of Service: 12/30/24 Date of admission: 12/29/24 08:50 Date of discharge: 12/30/24 Primary care physician: Unknown Physician Consults: 12/28/24 22:37 Consult to Gastroenterology Routine Consulting Provider: Thomas Esposito Reason for consultation: abd pain, elevated lfts DS: Diagnosis Discharge Diagnosis (1) Elevated LFTs: Status: Acute (2) Abdominal pain: Status: Acute DS: Summary Hospital Course Hospital Course: Chief Complaint: Abdominal pain This is a 59-year-old female with pertinent history of gastroesophageal reflux disease who presents to the emergency department for evaluation of abdominal pain. Patient states her symptoms started 1 week prior to presentation. She has been having epigastric discomfort, nonradiating which was initially intermittent progressed to being constant on the day of presentation. Also has been having nausea and nonbloody emesis. The pain increased with food on the day of presentation. States she does have a problem of gastroesophageal reflux and previously has had endoscopy by GI. Takes omeprazole every day. No fever, chills, diarrhea. Denies chest pain, palpitations, shortness of breath, changes in urinary habits. In the emergency department, liver enzymes and alk-phos found to be elevated. Imaging with dilated common duct. Gastroenterology was consulted who requested admission Hospital course: The patient presented with abdominal pain and elevated liver function tests (LFTs). A CT scan revealed borderline prominence of the common bile duct (CBD), and an abdominal ultrasound showed mild CBD dilation measuring 11.7 mm. Gastroenterology consultation (Dr. Esposito) led to an MRCP, which indicated that the CBD dilation was likely due to a prior cholecystectomy, with no intrahepatic biliary ductal dilation or evidence of choledocholithiasis. Liver Function Test Trends: * AST (Aspartate Aminotransferase): * Initial: 218 U/L * Peak: 588 U/L (169.7% increase) * Current: 178 U/L * ALT (Alanine Aminotransferase): * Initial: 128 U/L * Peak: 616 U/L (381.3% increase) * Current: 373 U/L * Bilirubin: * Initial: 0.9 mg/dL * Peak: 1.2 mg/dL (33.3% increase) * Current: 1.2 mg/dL * Alkaline Phosphatase: * Initial: 136 U/L * Peak: 181 U/L (33.1% increase) * Current: 162 U/L The patient's abdominal pain has resolved, and the LFTs are trending downward. The clinical presentation suggests that the symptoms were likely due to a passed gallstone. The patient is scheduled for discharge with a plan to repeat LFTs within a week to ensure continued improvement. To have repeat LFTs in a week Time Attestation Discharge Coordination Time (in mins): 35 Quality: Safe Use of Opioids Does Pt have an Active Cancer Diagnosis on the Problem List?: No Quality: Stroke Does the patient have a stroke diagnosis?: No Physical Exam Vital Signs: Vital Signs: Last Vital Signs Temp 97.4 F 12/30/24 07:18 Pulse 64 12/30/24 07:18 Resp 16 12/30/24 07:18 BP 99/53 L 12/30/24 07:18 Pulse Ox 94 12/30/24 07:18 O2 Del Method Room Air 12/30/24 07:18 BMI result Body Mass Index 28.9 DS: Data Data Completed and Pending Labs on day of discharge: Laboratory Results - last 24 hr 12/29/24 12/30/24 09:23 05:11 Hold Purple Top SEE NOTE PT 10.2 L INR 0.9 Total Bilirubin 1.1 H 1.2 H Direct Bilirubin 0.4 0.3 AST 430 H 178 H ALT 580 H 373 H Alkaline Phosphatase 196 H 163 H Total Protein 7.5 6.7 Albumin 4.1 3.6 Hepatitis A IgM Ab Nonreactive Hep Bs Antigen Negative Hep Bs Antibody NONREACTIVE Hep B Core Total Ab Nonreactive Hepatitis C Ab (EIA) Nonreactive Discharge Plan Discharge Anticipated Discharge Date/Time: 12/30/24 07:36 Patient Disposition: Home, Self-Care Discharge Diagnosis: Abdominal pain due to choledocholithiasis, elevated LFTs Referrals: Physician,Unknown J [Primary Care Provider] - 1 Week Discharge Medications: Continued calcium carbonate 500 mg calcium (1,250 mg) Tablet 500 mg PO BID omeprazole 20 mg Capsule,Delayed Release(Dr/Ec) 20 mg PO DAILY@0630 cholecalciferol (vitamin D3) 25 mcg (1,000 unit) tablet 25 mcg PO DAILY Diet: Advance to usual diet Activity on Discharge: As tolerated Stand Alone Forms: Patient Portal Discharge page Print Language: Algerian Other Ambulatory Orders: Liver Panel (Routine) Timeframe: 1 Week Facility: [facility] - Location: Laboratory Ordered By: Buddy Ch Care Plan Goals: Recovered from choledocholithiasis Health Concerns: Choledocholithiasis Elevated LFTs Plan of Treatment: Avoid fatty food Follow-up with your primary care doctor within a week You will have repeat liver function labs done within a week Return to the hospital with your pain returned Assessment: See above
--- NOTE | 2024-12-30 09:04 | MHC.CM.PN ---
pt dcd home self care
== END 2024-12-30 09:43 | disposition home or self-care (01) | DRG 254 ==
LOC: HO.ED 22:31 → HO.EDOVER 22:43 → HO.S3 12-29 18:04
PROVIDERS: Internal Medicine; Physician Assistant; Admitting Provider Student in an Organized Health Care Education/Training Program; Emergency Provider Student in an Organized Health Care Education/Training Program; PCP Internal Medicine; Visit Provider Internal Medicine
DX: R13.10 Dysphagia, unspecified (principal); K21.9 Gastro-esophageal reflux disease without esophagitis; Z79.899 Other long term (current) drug therapy
CPT/HCPCS: 36415; 74177; 74181; 76705; 80053; 80076; 81001; 82248; 83605; 83690; 84484; 84702; 85025; 85610; 86704; 86706; 86709; 86803; 87340; 93005; 99285; J1885; J2405; J2470

== ENCOUNTER → 2024-12-28 14:46 | Outpatient (BNV) | payer OTHER, SELFPAY | PROVIDERS: Admitting Provider Student in an Organized Health Care Education/Training Program; Emergency Provider Student in an Organized Health Care Education/Training Program; Visit Provider Internal Medicine Cardiovascular Disease | DX: R79.89 Other specified abnormal findings of blood chemistry (principal); R10.13 Epigastric pain | CPT/HCPCS: 93010 ==

== ENCOUNTER → 2024-12-28 19:17 | Outpatient (BNV) | payer OTHER, SELFPAY | PROVIDERS: Emergency Provider Student in an Organized Health Care Education/Training Program; Visit Provider Radiology Diagnostic Radiology | DX: R10.11 Right upper quadrant pain (principal); Z90.49 Acquired absence of other specified parts of digestive tract; K57.90 Diverticulosis of intestine, part unspecified, without perforation or abscess without bleeding; D25.9 Leiomyoma of uterus, unspecified; K83.9 Disease of biliary tract, unspecified | CPT/HCPCS: 74177; 76705 ==

== ENCOUNTER → 2024-12-28 22:37 | Outpatient (BNV) | payer OTHER, SELFPAY | PROVIDERS: Admitting Provider Student in an Organized Health Care Education/Training Program; Emergency Provider Student in an Organized Health Care Education/Training Program; Visit Provider Student in an Organized Health Care Education/Training Program | DX: R79.89 Other specified abnormal findings of blood chemistry (principal); R10.13 Epigastric pain | CPT/HCPCS: 99222 ==

== ENCOUNTER 2024-12-29 08:50 | Outpatient (BNV) | payer OTHER, SELFPAY | END 2024-12-29 12:19 | PROVIDERS: Admitting Provider Student in an Organized Health Care Education/Training Program; Emergency Provider Student in an Organized Health Care Education/Training Program; Visit Provider Radiology Diagnostic Radiology | DX: R10.11 Right upper quadrant pain (principal); R74.01 Elevation of levels of liver transaminase levels; Z90.49 Acquired absence of other specified parts of digestive tract; K83.9 Disease of biliary tract, unspecified | CPT/HCPCS: 74181 ==